=== PATIENT | male | born 1945 | race Caucasian/White ===

== ENCOUNTER 2025-03-05 11:13 | Outpatient (RCR) | payer MEDICARE, SELFPAY | END 2025-03-05 23:59 | disposition home or self-care (01) | LOC: RPT 11:13 | PROVIDERS: ATTENDING PHYSICIAN Internal Medicine Geriatric Medicine | DX: M54.9 Dorsalgia, unspecified (principal) | CPT/HCPCS: 97110; 97140; 97162; 97535 ==

== ENCOUNTER 2025-04-06 10:32 | Outpatient (RCR) | payer MEDICARE, SELFPAY | END 2025-04-06 23:59 | disposition home or self-care (01) | LOC: RPT 10:32 | PROVIDERS: ATTENDING PHYSICIAN Internal Medicine Geriatric Medicine | DX: M54.9 Dorsalgia, unspecified (principal) | CPT/HCPCS: 97110; 97140 ==

== ENCOUNTER 2025-05-07 09:04 | Outpatient (RCR) | payer MEDICARE, SELFPAY | END 2025-05-07 23:59 | disposition home or self-care (01) | LOC: RPT 09:04 | PROVIDERS: ATTENDING PHYSICIAN Internal Medicine Geriatric Medicine | DX: M54.6 Pain in thoracic spine (principal); M54.9 Dorsalgia, unspecified (principal); Z73.6 Limitation of activities due to disability; R26.89 Other abnormalities of gait and mobility | CPT/HCPCS: 97010; 97110; 97140 ==

== ENCOUNTER → 2025-06-01 11:43 | Outpatient (REF) | payer MEDICARE, SELFPAY | LOC: HWRAD 11:43 | PROVIDERS: ATTENDING PHYSICIAN Internal Medicine Geriatric Medicine | DX: E78.2 Mixed hyperlipidemia (principal); I10 Essential (primary) hypertension | CPT/HCPCS: 75571 ==

== ENCOUNTER → 2025-06-26 07:51 | Outpatient (REF) | payer MEDICARE, SELFPAY | LOC: HWRCS 07:51 | PROVIDERS: ATTENDING PHYSICIAN Internal Medicine Geriatric Medicine | DX: I25.10 Atherosclerotic heart disease of native coronary artery without angina pectoris (principal) | CPT/HCPCS: 78452; 93017; A9500; J2785 ==

== ENCOUNTER 2025-07-25 07:22 | Emergency (ER) | payer MEDICARE, SELFPAY ==
[2025-07-25 07:24] VITALS: BP 165/100
[2025-07-25 07:38] VITALS: BMI 31.3
--- NOTE | 2025-07-25 07:51 | ED.MUSCINJ ---
HPI-Injury
General
Chief Complaint: Musculo-Skeletal Complaint
Source: patient
Exam Limitations: none
Time Seen by Provider: 07/25/25 07:29
History of Present Illness-Injury
Initial Injury comments:
79-year-old male presents complaining of lower back pain that radiates down the left buttock through the left lateral thigh into the foot. The pain is constant is giving him trouble sleeping. No associated bowel or bladder dysfunction. No
numbness. No fever or rash. He tried ibuprofen without relief. He typically ambulates well without any assistance but lately has been having difficulty ambulating. No known injury. No other complaint this time
Phy Exam
Physical Exam
Physical Exam:
General: Well-appearing male no acute respiratory distress
HEENT: Normal cephalic atraumatic
Musculoskeletal exam: Patient is tender over the lumbosacral junction on the left side. No deformities to the legs. Good range of motion to the legs
Neurologic exam: Good sensation and strength to the lower extremities. Bilateral patellar reflexes 1+. Negative straight leg raise bilaterally.
Vascular: 2+ DP pulse left foot
Injury Course
Orders/Labs/Results
Orders:
Orders
07/25/25 07:52
Diazepam [Valium] 5 mg PO NOW STA
Ketorolac [Toradol] 30 mg IM NOW STA
CR Lumbar Spine 2 Or 3 Views Urgent
Comment:
Reason For Exam: back pain
MDM/Problems Addressed
Differential Diagnosis Includes:
Lower back pain that radiates down the left leg. Most consistent with radiculopathy. No red flags to suggest cauda equina. He has good pulses to the feet do not suspect vascular issue.
Will obtain x-rays of the back. Treat symptomatically.
*Pulse Oximetry
SaO2: 97
Oxygen Mode of Delivery: Room air
Patient hypoxic: no
*Critical Care Note
Total Time (30-74mins, 75-104mins- exclusive of procedures): Not Applicable
Update Note
Update Note:
X-rays show degenerative changes more pronounced at L5-S1 which would correlate with the patient's symptoms. Reexamined patient not sleeping comfortably. I suspect radiculopathy. Will continue to use prednisone and Valium as an outpatient. He
has an appoint with his family doctor in 2 days
ED Attending Note
-
Portions of this chart may have been created with voice recognition software.� Occasional wrong word or��sound alike� substitutions may have occurred due to the inherent limitations of voice recognition software.
Discharge Plan
Departure
Patient Disposition: Home (Routine Discharge)
Date of Disposition: 07/25/25
Time of Disposition: 09:15
Patient with high blood pressure during this ER visit?: No
Discharge Problem:
Acute lumbar radiculopathy
Instructions: Radiculopathy of the neck and back (including sciatica)
Prescriptions:
New
prednisone 10 mg Tablet
See Rx Instructions .ROUTE .COMPLEX Qty: 30 0RF
Rx Instructions:
Take By Mouth:
40 mg daily x3 days, 30 mg daily x3 days,
20 mg daily x3 days, 10 mg daily x3 days.
diazepam [Valium] 5 mg tablet
5 mg PO BID PRN (Reason: muscle spasm) Qty: 10 0RF
Referrals:
Jaya Collado MD [Family Provider, Internal Medicine]
Activity Restrictions/Additional Instructions:
Follow-up with your family doctor as planned. Use medicine as directed.
Interventions
Interventions:
*Risk Screen - Suicide Last Done: 07/25/25 07:24
*General Assessment Last Done: 07/25/25 07:24
ED-Musculoskeletal Assessment Last Done: 07/25/25 07:45
Discharge Date and Time
Print Language: [place]
[2025-07-25] MEDS: TORADOL 30 MG IM (07:57)
[2025-07-25] MEDS: VALIUM 5 MG PO (07:57)
== END 2025-07-25 09:30 | disposition home or self-care (01) ==
LOC: EMR 07:22
PROVIDERS: EMERGENCY PHYSICIAN Emergency Medicine; FAMILY PHYSICIAN Internal Medicine Geriatric Medicine
DX: M54.16 Radiculopathy, lumbar region (principal)
CPT/HCPCS: 96372; 99284; 72100

== ENCOUNTER → 2025-08-01 11:46 | Outpatient (REF) | payer MEDICARE, SELFPAY | LOC: PAVMRI 11:46 | PROVIDERS: ATTENDING PHYSICIAN Nurse Practitioner Family; FAMILY PHYSICIAN Internal Medicine Geriatric Medicine | DX: M54.16 Radiculopathy, lumbar region (principal) | CPT/HCPCS: 72148 ==

== ENCOUNTER 2025-08-05 11:35 | Outpatient (RCR) | payer MEDICARE, SELFPAY | END 2025-08-05 23:59 | disposition home or self-care (01) | LOC: RPT 11:35 | PROVIDERS: ATTENDING PHYSICIAN Student in an Organized Health Care Education/Training Program; FAMILY PHYSICIAN Internal Medicine Geriatric Medicine | DX: M54.16 Radiculopathy, lumbar region (principal); M48.061 Spinal stenosis, lumbar region without neurogenic claudication; M47.816 Spondylosis without myelopathy or radiculopathy, lumbar region | CPT/HCPCS: 97110; 97162; 97535 ==

== ENCOUNTER 2025-09-07 07:23 | Outpatient (RCR) | payer MEDICARE, SELFPAY | END 2025-09-07 23:59 | disposition home or self-care (01) | LOC: RPT 07:23 | PROVIDERS: ATTENDING PHYSICIAN Student in an Organized Health Care Education/Training Program; FAMILY PHYSICIAN Internal Medicine Geriatric Medicine | DX: M54.16 Radiculopathy, lumbar region (principal); M48.061 Spinal stenosis, lumbar region without neurogenic claudication; M47.816 Spondylosis without myelopathy or radiculopathy, lumbar region; Z73.6 Limitation of activities due to disability; R26.89 Other abnormalities of gait and mobility; M62.81 Muscle weakness (generalized) | CPT/HCPCS: 97010; 97110; 97140; 97535 ==